=== PATIENT | female | born 1985 | race Caucasian/White ===

== ENCOUNTER 2024-04-28 09:31 | Inpatient (IN) ==
[2024-04-28 10:58] LABS: Urine Creatinine Concentration 24.85 mg/dL (20.00-320.00); Urine TP Concentration < 5 mg/dL
[2024-04-28 11:06] LABS: Urine Benzodiazepine Screen None Detected (None Detect); Urine Cannabinoids Screen None Detected (None Detect); Urine Opiates Screen None Detected (None Detect)
[2024-04-28 12:33] LABS: ALT 14 U/L (7-52); Albumin 3.7 g/dL (3.2-5.2); Albumin/Globulin Ratio 1.2 (1-3); Alkaline Phosphatase 159 U/L (35-149); Anion Gap 8 mmol/L (2-16); Blood Urea Nitrogen 13 mg/dL (6-24); CO2 Carbon Dioxide 17 mmol/L (22-32); Calcium 8.9 mg/dL (8.6-10.3); Chloride 105 mmol/L (101-111); Creatinine, Serum 0.57 mg/dL (0.51-0.95); Glucose 148 mg/dL (70-100); Sodium 130 mmol/L (135-145); Total Bilirubin 0.3 mg/dL (0.2-1.0); Total Protein 6.7 g/dL (6.4-8.9); Uric Acid 4.2 mg/dL (2.3-6.6); eGFR CKD-EPI 117.7 (>60)
[2024-04-28 13:18] LABS: Hematocrit 35.7 % (35-45); Hemoglobin 11.8 g/dL (11.5-14.3); Mean Corpuscular Hemoglobin 27.4 pg (27-33); Mean Corpuscular Volume 83.3 fL (80-97); Mean Platelet Volume 10.5 fL (7.5-11.2); Platelet Count 220 10^3/uL (150-450); Red Blood Count 4.29 10^6/uL (3.63-4.92); White Blood Count 15.6 10^3/uL (3.8-11.8)
[2024-04-28] MEDS: Lactated Ringers 1000 ml BAG 1,000 ML IV ONE ×2 (13:30→19:43)
[2024-04-28] MEDS ORDERED: Phenylephrine 40 mcg/mL 10mL (400mcg) SYRINGE ONE (13:45)
[2024-04-28 14:01] LABS: ABS Eosinophils 0.1 10^3/uL (0.0-0.5); ABS Lymphocytes 1.3 10^3/uL (1.0-4.8); ABS Monocytes 0.5 10^3/uL (0.0-0.9); ABS Neutrophils 13.7 10^3/uL (1.5-7.6); Anisocytosis 1+; Burr Cells 1+; Eosinophil % 0.9 %; Lymphocyte % 8.2 %
[2024-04-28 14:07] LABS: Potassium Redraw 4.2 mmol/L (3.5-5.0)
[2024-04-28] MEDS: Lactated Ringers 1000 ml BAG 1,000 ML IV SCH ×2 (14:20→19:43)
[2024-04-28] MEDS: OBEPIDURAL (200 ML) 200 ML EPIDURAL ONE (14:20)
[2024-04-28] MEDS: Lidocaine 1.5% EPI 1:200,000 30 ML SDV ONE (14:21)
[2024-04-28] MEDS ORDERED: Sodium Citrate/Citric Acid LIQ 15 ML UDC PO PRN (14:25)
[2024-04-28] MEDS ORDERED: Phenylephrine 40 mcg/mL 10mL (400mcg) SYRINGE IV PUSH PRN ×2 (14:25)
[2024-04-28 17:03] LABS: Urine Appearance Clear; Urine Bilirubin Negative (Negative); Urine Blood Negative (Negative); Urine Color Colorless; Urine Glucose Negative (Negative); Urine Ketones Negative (Negative); Urine Nitrite Negative (Negative); Urine Protein Negative (Negative); Urine Specific Gravity 1.001 (1.002-1.030); Urine Urobilinogen Negative (Negative)
[2024-04-28] MEDS: OBEPIDURAL (200 ML) 200 ML EPIDURAL SCH (19:43)
[2024-04-28] MEDS: Ropivacaine (OR use only) 2 MG/ML 10 ML ONE (19:43)
[2024-04-29] MEDS: Oxytocin in LR 20,000 MILLI.UNIT/1,000 ML BAG IV SCH (00:51)
[2024-04-29] MEDS ORDERED: Lidocaine 2% w/ EPI 1:200,000 MPF 20 ML SDV VIAL ONE (01:03)
[2024-04-29] MEDS: Lidocaine 1% VIAL 10 MG/ML 30 ML VIAL INJ PRN (01:18)
[2024-04-29] MEDS ORDERED: Oxytocin in LR 20,000 MILLI.UNIT/1,000 ML BAG IV SCH (02:20)
[2024-04-29] MEDS ORDERED: Lactated Ringers 1000 ml BAG 1,000 ML IV SCH (03:00)
[2024-04-29] MEDS: Witch Hazel PAD JAR TOPICAL PRN (05:34)
[2024-04-29] MEDS: Dibucaine 1% OINT 28.35 GM TUBE PR PRN (05:34)
[2024-04-30 07:30] LABS: ABS Basophils 0.1 10^3/uL (0.0-0.1); ABS Eosinophils 0.1 10^3/uL (0.0-0.5); ABS Lymphocytes 2.9 10^3/uL (1.0-4.8); ABS Monocytes 0.9 10^3/uL (0.0-0.9); ABS Neutrophils 10.3 10^3/uL (1.5-7.6); ABS Nucleated RBC 0.01 10^3/ul; Hematocrit 29.8 % (35-45); Hemoglobin 9.9 g/dL (11.5-14.3); Lymphocyte % 20.1 %; Mean Corpuscular Hemoglobin 27.8 pg (27-33); Mean Corpuscular Hgb Conc 33.2 g/dL (31-36); Mean Corpuscular Volume 83.8 fL (80-97); Mean Platelet Volume 9.3 fL (7.5-11.2); Nucleated Red Blood Cells % 0.1 %/100WBC (0.0-0.8); Platelet Count 178 10^3/uL (150-450); Red Blood Count 3.56 10^6/uL (3.63-4.92); Red Cell Distribution Width 15.3 % (12-17); White Blood Count 14.3 10^3/uL (3.8-11.8)
[2024-04-30 12:04] VITALS: BP 130/73
== END 2024-04-30 15:10 | disposition home or self-care (01) | DRG 560 ==
LOC: MCHOBOUT 09:31 → MCHOB 09:52
PROVIDERS: ADMIT Midwife; ATTEND Midwife